=== PATIENT | male | born 1960 | race Caucasian/White ===

== ENCOUNTER 2019-11-27 17:15 | Inpatient (IN) | payer BC ==
[~2019-11-27] VITALS: Ht 172.7 cm; Wt 86.2 kg
[2019-11-27] MEDS ORDERED: ONDANSETRON HCL 4 MG/2 ML VIAL IV ONE (20:00)
[2019-11-27] MEDS ORDERED: HYDROmorphone HCL 2 MG/ML VL IV ONE (20:00)
[2019-11-27 20:30] LABS: Basophils # (auto) 0 10 ^3/uL (0-0.2); Basophils % (auto) 0.3 % (0.0-2.0); Eosinophils # (auto) 0.2 10 ^3/uL (0-0.8); Eosinophils % (auto) 1.6 % (0.0-7.0); Hematocrit 39.5 % (41.0-53.0); Hemoglobin 13.2 g/dL (13.5-17.5); Lymphocytes # (auto) 1.4 10 ^3/uL (0.4-5.4); Mean Corpuscular Hemoglobin 30.8 pg (28.0-32.0); Mean Corpuscular Hgb Conc. 33.4 g/dL (32.0-36.0); Mean Corpuscular Volume 92.1 fL (80.0-100.0); Monocytes % (auto) 8.6 % (0.0-12.0); Neutrophils # (auto) 8.5 10 ^3/uL (1.6-8.6); Neutrophils % (auto) 76.5 % (37.0-80.0); Platelet Count (auto) 183 10^3/uL (140-450); Red Blood Cells 4.29 10^6/uL (4.5-5.90); Red Cell Distribution Width 12.5 % (11.8-14.3); White Blood Cell 11.1 10^3/uL (4.4-10.8)
[2019-11-27 20:48] LABS: Albumin 3.6 g/dL (3.4-5.0); BUN/Creatinine Ratio 17.3; Calcium 8.4 mg/dL (8.5-10.1); Potassium 4.3 mmol/L (3.5-5.1)
[2019-11-27 20:49] LABS: INR 1.05 (0.9-1.15)
[2019-11-27 20:50] LABS: Bilirubin, Total 0.6 mg/dL (0.2-1.0); Total Protein 6.8 g/dL (6.4-8.2)
[2019-11-27] MEDS ORDERED: ONDANSETRON HCL 4 MG/2 ML VIAL IV PRN (21:00)
[2019-11-27] MEDS: FAMOTIDINE 20 MG TAB PO SCH (22:02)
[2019-11-28] MEDS: MORPHINE SULFATE 4 MG/ML SYR/VIAL IV PRN ×3 (01:59→22:02)
[2019-11-28 03:08] LABS: Urine WBC None Seen /hpf (0 - 3)
[2019-11-28 03:14] LABS: Urine Bacteria NONE SEEN /hpf (None Seen); Urine Blood Negative /uL (Negative); Urine Specific Gravity 1.008 (1.001-1.035)
[2019-11-28 03:21] LABS: Alcohol, Urine < 3.0 mg/dL (0-10); Amphetamine Screen, Urine NEGATIVE (NEGATIVE); Barbiturate Scree,Urine NEGATIVE (NEGATIVE); Benzodiazephine Screen, Urine NEGATIVE (NEGATIVE); Cocaine Screen, Urine NEGATIVE (NEGATIVE); Opiate Scree,Urine POSITIVE (NEGATIVE); Phencyclidine Screen, Urine NEGATIVE (NEGATIVE)
[2019-11-28 03:32] LABS: Cannabinoid Screen, Urine NEGATIVE (NEGATIVE)
[2019-11-28 07:49] LABS: Basophils # (auto) 0.1 10 ^3/uL (0-0.2); Basophils % (auto) 0.9 % (0.0-2.0); Eosinophils # (auto) 0.4 10 ^3/uL (0-0.8); Eosinophils % (auto) 4.8 % (0.0-7.0); Hematocrit 41.9 % (41.0-53.0); Hemoglobin 13.8 g/dL (13.5-17.5); Lymphocytes # (auto) 1.1 10 ^3/uL (0.4-5.4); Lymphocytes % (auto) 11.6 % (10.0-50.0); Mean Corpuscular Hemoglobin 30.4 pg (28.0-32.0); Mean Corpuscular Hgb Conc. 32.8 g/dL (32.0-36.0); Mean Corpuscular Volume 92.5 fL (80.0-100.0); Monocytes # (auto) 0.6 10 ^3/uL (0-1.3); Monocytes % (auto) 6.8 % (0.0-12.0); Neutrophils % (auto) 75.9 % (37.0-80.0); Platelet Count (auto) 190 10^3/uL (140-450); Red Blood Cells 4.54 10^6/uL (4.5-5.90); Red Cell Distribution Width 12.5 % (11.8-14.3); White Blood Cell 9.2 10^3/uL (4.4-10.8)
[2019-11-28 08:09] LABS: BUN/Creatinine Ratio 13.5; Calcium 8.3 mg/dL (8.5-10.1); Potassium 3.9 mmol/L (3.5-5.1)
[2019-11-28] MEDS: FAMOTIDINE 20 MG TAB PO SCH ×2 (09:06→21:57)
[2019-11-28] MEDS: HYDROcodone-ACET 5/325MG TAB PO PRN ×3 (09:07→18:18)
--- NOTE | 2019-11-28 10:38 | NUR ---
Telemetry admit from ER ZAINA BETANCOURT admitted to Telemetry unit after SBAR received. Patient oriented to RICHY ROBLEDO RN primary RN, unit, room 209, bed, and unit policies regarding patient care and visiting hours. Patient weighed by bedscale and encouraged to call if they need something. All questions and concerns addressed, patient verbalized understanding. Bed in low and locked position, rails up x2, no-slip socks on.
[2019-11-28] MEDS ORDERED: MORP-109 PO (11:19)
[2019-11-28] MEDS ORDERED: CYCL7.5T45 PO (11:19)
[2019-11-28] MEDS ORDERED: PROP60CA34 PO (11:19)
[2019-11-28] MEDS ORDERED: HYDR-4611 PO (11:19)
[2019-11-28] MEDS ORDERED: ALEN70TA2 PO (11:19)
[2019-11-28 12:38] VITALS: BP 149/96
--- NOTE | 2019-11-28 16:15 | NUR ---
DR FRYE AT BEDSIDE
[2019-11-28] MEDS ORDERED: cloNIDine HCL 0.1 MG TAB PO PRN (16:30)
[2019-11-28 16:32] VITALS: BP 138/88
--- NOTE | 2019-11-28 19:15 | NUR ---
Opening Shift Note Received report from Germania SANTOS. Assumed care of patient, awake and alert. No S/S of distress/SOB or pain. Instructed on POC and to call for assist PRN. Fall precaution measures in place, will continue to monitor for changes Q1hr and PRN.
[2019-11-28 22:00] VITALS: BP 133/85
[2019-11-29 05:00] VITALS: BP 146/92
[2019-11-29] MEDS: HYDROcodone-ACET 5/325MG TAB PO PRN ×3 (05:19→21:48)
--- NOTE | 2019-11-29 05:19 | NUR ---
Patient prepped with CHG wipes, clean set of sheets placed.
[2019-11-29 05:21] LABS: Basophils # (auto) 0 10 ^3/uL (0-0.2); Basophils % (auto) 0.4 % (0.0-2.0); Eosinophils # (auto) 0.4 10 ^3/uL (0-0.8); Eosinophils % (auto) 3.6 % (0.0-7.0); Hematocrit 42.3 % (41.0-53.0); Hemoglobin 14.3 g/dL (13.5-17.5); Lymphocytes # (auto) 1.4 10 ^3/uL (0.4-5.4); Lymphocytes % (auto) 12.7 % (10.0-50.0); Mean Corpuscular Hemoglobin 31.2 pg (28.0-32.0); Mean Corpuscular Hgb Conc. 33.7 g/dL (32.0-36.0); Mean Corpuscular Volume 92.6 fL (80.0-100.0); Monocytes # (auto) 0.8 10 ^3/uL (0-1.3); Monocytes % (auto) 7.7 % (0.0-12.0); Neutrophils # (auto) 8.2 10 ^3/uL (1.6-8.6); Neutrophils % (auto) 75.6 % (37.0-80.0); Nucleated Red Blood Cells % 0.1 %; Platelet Count (auto) 193 10^3/uL (140-450); Red Blood Cells 4.57 10^6/uL (4.5-5.90); Red Cell Distribution Width 12.5 % (11.8-14.3); White Blood Cell 10.9 10^3/uL (4.4-10.8)
[2019-11-29 06:10] LABS: Calcium 8.8 mg/dL (8.5-10.1)
[2019-11-29 06:11] LABS: BUN/Creatinine Ratio 15.6
[2019-11-29] MEDS ORDERED: KETOROLAC TROMETH 30 MG/ML 1ML VIAL ONE (06:58)
[2019-11-29] MEDS ORDERED: VANCOMYCIN HCL 1000 MG VL ONE (06:59)
[2019-11-29] MEDS ORDERED: BUPIVACAINE W/ EPINEPH 0.25% INJ 50ML MDV ONE (07:00)
[2019-11-29] MEDS ORDERED: TRANEXAMIC ACID 20 ML ONE (07:00)
--- NOTE | 2019-11-29 07:15 | NUR ---
Opening Shift Note Assumed care of patient, awake and alert. No S/S of distress/SOB or pain. Instructed on POC and to call for assist PRN, will continue to monitor for changes Q1hr and PRN. Bed locked in lowest position with two side rails up and call light in reach.
[2019-11-29 08:00] VITALS: BP 160/99
[2019-11-29] MEDS ORDERED: ceFAZolin 1GM/50ML 100 ML IV ONE (08:40)
[2019-11-29] MEDS ORDERED: SUCCINYLCHOLINE CHLORIDE 20 MG/ML 10ML VIAL IV ONE (09:07)
[2019-11-29] MEDS ORDERED: fentaNYL CITRATE 100 MCG/2 ML VL ONE ×2 (09:09→09:24)
[2019-11-29] MEDS ORDERED: ROCURONIUM 10MG/ML 10ML VIAL IV ONE (09:09)
[2019-11-29] MEDS ORDERED: MIDAZOLAM HCL 1MG/1ML-2 ML VIAL ONE ×2 (09:09→09:23)
[2019-11-29 09:14] VITALS: BP 160/99
[2019-11-29] MEDS ORDERED: DexAMETHasone SOD PHOS 10MG/1ML VIAL INJ ONE (09:49)
[2019-11-29] MEDS: FAMOTIDINE 20 MG TAB PO SCH ×2 (10:00→21:47)
[2019-11-29] MEDS ORDERED: MORPHINE SULF(PF) 0.5MG/ML 10ML VIAL ONE (10:19)
[2019-11-29] MEDS ORDERED: ALBUMIN 5% 500 ML IV ONE (10:28)
[2019-11-29] MEDS ORDERED: NEOSTIGMINE 1 MG/ML INJ (10mg/10ML VIAL) ONE (11:03)
[2019-11-29] MEDS ORDERED: GLYCOPYRROLATE 0.2 MG/ML 1ML VIAL ONE (11:03)
[2019-11-29] MEDS ORDERED: KETOROLAC TROMETH 60MG/2ML VIAL ONE (11:19)
[2019-11-29] MEDS: LACTATED RINGER'S 1,000 ML IV SCH ×2 (11:24→21:24)
[2019-11-29] MEDS: ceFAZolin 1GM/50ML 50 ML IV SCH ×3 (11:30→23:33)
[2019-11-29] MEDS ORDERED: HYDROmorphone HCL 2 MG/ML VL IV PRN ×2 (11:45)
[2019-11-29] MEDS ORDERED: METOCLOPRAMIDE HCL 5MG/ml INJ 2ml VIAL IV PRN (11:45)
--- NOTE | 2019-11-29 12:40 | NUR ---
RECEIVED PATIENT TO THE FLOOR, WES PACU NURSE AT BEDSIDE. PER WES RN PATIENT HAD HIS IV INFILTRATE DURING SURGERY AND NEW ONE WAS PLACED TO THE RIGHT WRIST PER WES.. PER WES RN, PATIENT RECEIVED A SKIN TEAR WHEN TEGADERM WAS REMOVED. I ASKED WES RN IF PHOTOS WERE TAKEN OF SKIN TEAR, PER WES THEY DO NOT DO THAT DOWN THERE . I ALSO ASKED IF THERE IS A NOTE AND WES STATES SHE HAS TO CATCH UP WITH CHARTING. UPON REVIEWING CHART THERE ARE NO NOTES REGARDING SKIN TEAR. CHARGE NURSE VERONICA YOUNG. I ASSESSED PATIENTS ARM AND THERE IS A SUPERFICIAL SKIN TEAR THAT IS CURRENTLY BLEEDING, ONLY COBAN PLACED TO THE SITE FROM PACU. I WILL DRESS WITH AN OPTIFOAM. PATIENT UNDER NO DISTRESS AT THIS TIME. WILL CONTINUE TO MONITOR.
[2019-11-29 13:11] VITALS: BP 160/97
[2019-11-29] MEDS: MORPHINE SULFATE 4 MG/ML SYR/VIAL IV PRN (13:24)
[2019-11-29] MEDS: SODIUM CHLOR 0.9% PF (SALINE LOCK) 10ML VIAL/SYR IV SCH ×2 (14:00→21:50)
--- NOTE | 2019-11-29 14:34 | NUR ---
DR DALTON GOULD
[2019-11-29 16:50] VITALS: BP 130/77
--- NOTE | 2019-11-29 19:20 | NUR ---
Opening Shift Note Received report from Maria R SANTOS. Assumed care of patient, awake and alert. Patient eating dinner at the moment. No S/S of distress/SOB or pain. Instructed on POC and to call for assist PRN. Fall precaution measures in place, will continue to monitor for changes Q1hr and PRN.
[2019-11-29] MEDS: ACETAMINOPHEN 325 MG TAB PO PRN (20:24)
[2019-11-29 22:00] VITALS: BP 129/73
[2019-11-30] MEDS: MORPHINE SULFATE 4 MG/ML SYR/VIAL IV PRN ×4 (01:14→17:51)
[2019-11-30] MEDS: HYDROcodone-ACET 5/325MG TAB PO PRN ×3 (03:09→20:03)
[2019-11-30 05:00] VITALS: BP 153/90
[2019-11-30] MEDS: ACETAMINOPHEN 325 MG TAB PO PRN (05:14)
[2019-11-30] MEDS: SODIUM CHLOR 0.9% PF (SALINE LOCK) 10ML VIAL/SYR IV SCH ×3 (06:20→20:59)
[2019-11-30] MEDS: LACTATED RINGER'S 1,000 ML IV SCH ×2 (07:24→17:24)
--- NOTE | 2019-11-30 07:30 | NUR ---
Opening Shift Note Assumed care of patient, awake and alert. No S/S of distress/SOB or pain. Bed is low, locked with 2x side rails up. Call light is within reach. Instructed on POC and to call for assist PRN, will continue to monitor for changes Q1hr and PRN.
[2019-11-30 08:59] LABS: Basophils # (auto) 0.1 10 ^3/uL (0-0.2); Basophils % (auto) 0.5 % (0.0-2.0); Eosinophils # (auto) 0 10 ^3/uL (0-0.8); Hematocrit 36.5 % (41.0-53.0); Hemoglobin 12.1 g/dL (13.5-17.5); Lymphocytes # (auto) 1.1 10 ^3/uL (0.4-5.4); Lymphocytes % (auto) 5.9 % (10.0-50.0); Mean Corpuscular Hemoglobin 30.4 pg (28.0-32.0); Mean Corpuscular Hgb Conc. 33.1 g/dL (32.0-36.0); Mean Corpuscular Volume 91.9 fL (80.0-100.0); Monocytes # (auto) 1.2 10 ^3/uL (0-1.3); Monocytes % (auto) 6.1 % (0.0-12.0); Neutrophils # (auto) 16.8 10 ^3/uL (1.6-8.6); Neutrophils % (auto) 87.5 % (37.0-80.0); Platelet Count (auto) 199 10^3/uL (140-450); Red Blood Cells 3.98 10^6/uL (4.5-5.90); Red Cell Distribution Width 12.8 % (11.8-14.3); White Blood Cell 19.2 10^3/uL (4.4-10.8)
[2019-11-30 09:00] VITALS: BP 145/95
[2019-11-30] MEDS: FAMOTIDINE 20 MG TAB PO SCH ×2 (09:06→21:00)
[2019-11-30] MEDS: ENOXAPARIN SOD 40 MG/0.4 ML SYRINGE SC SCH (09:07)
[2019-11-30 09:10] LABS: Albumin 3.3 g/dL (3.4-5.0); Calcium 8.5 mg/dL (8.5-10.1); Potassium 4.4 mmol/L (3.5-5.1)
[2019-11-30] MEDS ORDERED: METOCLOPRAMIDE HCL 5MG/ml INJ 2ml VIAL IV ONE (09:10)
[2019-11-30 09:15] LABS: Bilirubin, Total 0.5 mg/dL (0.2-1.0); Total Protein 6.5 g/dL (6.4-8.2)
--- NOTE | 2019-11-30 09:20 | NUR ---
Dr. Fine rounding Dr. Fine at bedside discussing POC with patient. All concerns addressed at this time. No new orders received. Will continue to monitor Q1hr and PRN.
[2019-11-30] MEDS ORDERED: ONDANSETRON HCL 4 MG/2 ML VIAL IV ONE (09:34)
[2019-11-30 13:00] VITALS: BP 155/92
[2019-11-30] MEDS: PROPRANOLOL HCL 20 MG TAB PO SCH ×2 (13:24→21:00)
--- NOTE | 2019-11-30 16:27 | NUR ---
assessment Patient is a 59 year old male who is alert and oriented. Patients cognitive abilities are intact. Prior to admission patient lived home alone and functioned independently. Patient informed me he is able to care for his own ADLs. Per patient he will return home to his prior living arrangements post discharge and family will transport him home. Patient informed me he fell over a box and fractured his hip. Patients son will be here on 12/03/2019 to stay with patient for recovery. Patient ambulated with PT today. Patient will need a fww on discharge. Patient is willing to go to out patient physical therapy. Patients PCP is Dr Vaughan. I informed patient he has a right to speak to a manager social regarding all care. I informed patient he has a right to participate in any and all discharge planning. Patient does not have a POA and advanced directive. I have offered patient information on POA and advanced directives. I informed the patient the advantages and benefits of having an Advanced Directive. Patient verbalized understanding and agreed to discharge plan home. Addendum: 11/30/19 at 1630 by Chula RESEDNIZ Amended: Links added.
[2019-11-30 17:00] VITALS: BP 147/74
--- NOTE | 2019-11-30 19:25 | NUR ---
Opening Shift Note Received report from Vanessa SANTOS. Assumed care of patient, awake and alert. No S/S of distress/SOB or pain. Instructed on POC and to call for assist PRN, will continue to monitor for changes Q1hr and PRN.
[2019-11-30 21:49] VITALS: BP 156/95
[2019-12-01] MEDS: HYDROcodone-ACET 5/325MG TAB PO PRN ×4 (00:18→20:18)
[2019-12-01] MEDS: TEMAZEPAM 15 MG CAP PO PRN ×2 (00:50→23:18)
[2019-12-01] MEDS: LACTATED RINGER'S 1,000 ML IV SCH (03:24)
[2019-12-01 05:20] VITALS: BP 143/75
[2019-12-01 05:48] LABS: Basophils # (auto) 0 10 ^3/uL (0-0.2); Basophils % (auto) 0.4 % (0.0-2.0); Eosinophils # (auto) 0.1 10 ^3/uL (0-0.8); Hematocrit 34.4 % (41.0-53.0); Hemoglobin 11.4 g/dL (13.5-17.5); Lymphocytes # (auto) 2.3 10 ^3/uL (0.4-5.4); Lymphocytes % (auto) 17.3 % (10.0-50.0); Mean Corpuscular Hemoglobin 30.6 pg (28.0-32.0); Mean Corpuscular Hgb Conc. 33.1 g/dL (32.0-36.0); Mean Corpuscular Volume 92.5 fL (80.0-100.0); Monocytes # (auto) 1.3 10 ^3/uL (0-1.3); Monocytes % (auto) 10.2 % (0.0-12.0); Neutrophils # (auto) 9.4 10 ^3/uL (1.6-8.6); Neutrophils % (auto) 71.1 % (37.0-80.0); Platelet Count (auto) 204 10^3/uL (140-450); Red Blood Cells 3.72 10^6/uL (4.5-5.90); Red Cell Distribution Width 12.6 % (11.8-14.3); White Blood Cell 13.2 10^3/uL (4.4-10.8)
[2019-12-01] MEDS: PROPRANOLOL HCL 20 MG TAB PO SCH ×3 (06:00→22:00)
[2019-12-01] MEDS: SODIUM CHLOR 0.9% PF (SALINE LOCK) 10ML VIAL/SYR IV SCH ×3 (06:00→22:00)
[2019-12-01 06:22] LABS: Calcium 8.1 mg/dL (8.5-10.1); Potassium 3.9 mmol/L (3.5-5.1)
[2019-12-01 06:24] LABS: BUN/Creatinine Ratio 18.6
--- NOTE | 2019-12-01 07:25 | NUR ---
Opening Shift Note Assumed care of patient, awake and alert. No S/S of distress/SOB or pain. L hip dressing is C/D/I. Bed is low, locked with 2x side rails up. Call light is within reach. Instructed on POC and to call for assist PRN, will continue to monitor for changes Q1hr and PRN.
[2019-12-01] MEDS: MORPHINE SULFATE 4 MG/ML SYR/VIAL IV PRN ×3 (08:11→23:18)
[2019-12-01 08:50] VITALS: BP 136/74
[2019-12-01] MEDS: FAMOTIDINE 20 MG TAB PO SCH ×2 (09:31→22:00)
[2019-12-01] MEDS: ENOXAPARIN SOD 40 MG/0.4 ML SYRINGE SC SCH (09:31)
--- NOTE | 2019-12-01 10:34 | NUR ---
PT at bedside
--- NOTE | 2019-12-01 10:40 | NUR ---
Dr. Lazo rounding Dr. Lazo is at bedside discussing POC with patient.
[2019-12-01] MEDS ORDERED: cloNIDine HCL 0.1 MG TAB PO PRN (10:45)
[2019-12-01] MEDS ORDERED: POLYETHYLENE GLYCOL 17 GM PWDR PO ONE (10:45)
--- NOTE | 2019-12-01 11:21 | NUR ---
Nutrition Assessment Notes please see attached link fro complete assessment Est energy needs BW 75 [id number] kcal (25-30kcal/kg BW), Est protein needs: 75-90g (1-1.2g/kg BW) Will reassess prn Addendum: 12/01/19 at [address] Amended: Links added.
[2019-12-01 12:58] VITALS: BP 127/69
--- NOTE | 2019-12-01 16:19 | NUR ---
D/C Planning Regarding social service consult for outpatient physical therapy and walker. Faxed clinical information to [facility]. Per Radha with [facility] they will deliver walker to front lobby between 14:00-17:00. Informed patient he can go to [facility] physical therapy in [address] . Informed DANIELLE Mendez.
[2019-12-01 16:46] VITALS: BP 138/70
[2019-12-01 22:52] VITALS: BP 121/80
[2019-12-01 23:21] VITALS: BP 121/80
--- NOTE | 2019-12-02 03:10 | NUR ---
1900.12/01/19. REPORT OBTAINED AND PATIENT CARE RESUMED. 1999 PATIENT SEEN AND ASSESSED. WAS COMFORTABLE. BREATHING WAS EVEN AND UNLABORED.. OFFERED A CUP OF TEA. 219. MEDICATED FOR PAIN 08/22 RYAN BOLANOS.
--- NOTE | 2019-12-02 03:14 | NUR ---
2318. MEDICATED FOR PAIN WITH MORPHINE.
[2019-12-02] MEDS: HYDROcodone-ACET 5/325MG TAB PO PRN ×3 (04:10→21:44)
--- NOTE | 2019-12-02 05:25 | NUR ---
PATIENT AWAKE. DENEIS PAIN.
[2019-12-02 05:27] VITALS: BP 143/84
[2019-12-02] MEDS: SODIUM CHLOR 0.9% PF (SALINE LOCK) 10ML VIAL/SYR IV SCH ×3 (05:31→21:41)
[2019-12-02] MEDS: PROPRANOLOL HCL 20 MG TAB PO SCH ×3 (05:32→21:43)
[2019-12-02 06:43] LABS: Basophils # (auto) 0.1 10 ^3/uL (0-0.2); Basophils % (auto) 0.8 % (0.0-2.0); Eosinophils # (auto) 0.3 10 ^3/uL (0-0.8); Hematocrit 35.7 % (41.0-53.0); Hemoglobin 12.2 g/dL (13.5-17.5); Lymphocytes # (auto) 2.7 10 ^3/uL (0.4-5.4); Lymphocytes % (auto) 19.1 % (10.0-50.0); Mean Corpuscular Hemoglobin 31.2 pg (28.0-32.0); Mean Corpuscular Hgb Conc. 34.3 g/dL (32.0-36.0); Mean Corpuscular Volume 91.2 fL (80.0-100.0); Monocytes # (auto) 1.6 10 ^3/uL (0-1.3); Monocytes % (auto) 11.4 % (0.0-12.0); Neutrophils # (auto) 9.4 10 ^3/uL (1.6-8.6); Neutrophils % (auto) 66.7 % (37.0-80.0); Platelet Count (auto) 262 10^3/uL (140-450); Red Blood Cells 3.92 10^6/uL (4.5-5.90); Red Cell Distribution Width 12.8 % (11.8-14.3)
--- NOTE | 2019-12-02 08:00 | NUR ---
Opening Shift Note Assumed care of patient, awake, alert and oriented X4. No S/S of distress/SOB, complains of left hip pain, 8/, will medicated with prescribed pain medication, verbalized understanding. IV to left hand, 22 gauge, patent and saline locked. Left hip dressing clean, dry and intact. Instructed on POC and to call for assist PRN, verbalized understanding. Bed locked, in lowest position, call light within reach, will continue to monitor for changes Q1hr and PRN.
[2019-12-02 08:50] VITALS: BP 102/69
--- NOTE | 2019-12-02 10:05 | NUR ---
ROUNDS Dr Lazo at bedside for rounds, new orders received and followed through. Patient updated on plan of care, verbalized understanding.
[2019-12-02] MEDS: ENOXAPARIN SOD 40 MG/0.4 ML SYRINGE SC SCH (10:16)
[2019-12-02] MEDS: FAMOTIDINE 20 MG TAB PO SCH ×2 (10:16→21:41)
[2019-12-02] MEDS: MORPHINE SULFATE 4 MG/ML SYR/VIAL IV PRN (12:53)
[2019-12-02 13:00] VITALS: BP 122/76
--- NOTE | 2019-12-02 16:56 | NUR ---
D/C planning Regarding social service consult for shower chair and home health. Faxed clinical information to [facility]. Ward Garcia with [facility] shower chair will be deliver to bedside between 12:00-13:00. Contact [facility], [facility], [facility] health and they are not contracted with patient health plan. Patient was informed regarding his health plan being out of area. Patient was provided with outpatient physical therapy. Addendum: 12/02/19 at 1700 by KENY RESENDIZ Patient was provided with outpatient physical therapy information.
[2019-12-02 17:00] VITALS: BP 121/75
--- NOTE | 2019-12-02 19:03 | NUR ---
Care endorsed to DANIELLE Vazquez, night nurse.
--- NOTE | 2019-12-02 19:33 | NUR ---
1900. REPORT OBTAINED ON PATIENT. 1914. PATIENT SEEN IN HIS ROOM AND ASSESSMENT DONE. ALERT AND AFEBRILE. DENIES PAIN. DRESSING ON SURGICAL SITE CLEAR AND DRY. LUNGS CLEAR. BREATHING EVEN AND UNLABORED.
[2019-12-02 21:59] VITALS: BP 112/70
[2019-12-02] MEDS: TEMAZEPAM 15 MG CAP PO PRN (22:45)
[2019-12-03 05:14] VITALS: BP 123/62
[2019-12-03] MEDS: SODIUM CHLOR 0.9% PF (SALINE LOCK) 10ML VIAL/SYR IV SCH ×2 (05:52→13:57)
[2019-12-03] MEDS: HYDROcodone-ACET 5/325MG TAB PO PRN ×3 (05:53→16:27)
[2019-12-03] MEDS: PROPRANOLOL HCL 20 MG TAB PO SCH ×2 (05:53→14:00)
--- NOTE | 2019-12-03 07:23 | NUR ---
0700. PATIENT ENDORSED TO JULIE. SANTOS.
--- NOTE | 2019-12-03 08:00 | NUR ---
Opening Shift Note Assumed care of patient, awake, alert and oriented X4. No S/S of distress/SOB, complains of left hip pain, 2/10, will medicated with prescribed pain medication, verbalized understanding. IV to left hand, 22 gauge, patent and saline locked. Left hip dressing clean, dry and intact. Instructed on POC and to call for assist PRN, verbalized understanding. Bed locked, in lowest position, call light within reach, will continue to monitor for changes Q1hr and PRN.
[2019-12-03 09:00] VITALS: BP 112/71
--- NOTE | 2019-12-03 09:45 | NUR ---
ROUNDS Dr Lazo at bedside for rounds, new orders received and followed through. Patient updated on plan of care, verbalized understanding.
--- NOTE | 2019-12-03 10:55 | NUR ---
I called [facility] [phone] to ask if they are at risk for home health-was on hold for more than 10 minutes-will try again.
[2019-12-03] MEDS: ENOXAPARIN SOD 40 MG/0.4 ML SYRINGE SC SCH (11:07)
[2019-12-03] MEDS: FAMOTIDINE 20 MG TAB PO SCH (11:07)
[2019-12-03 11:21] VITALS: BP 123/62
--- NOTE | 2019-12-03 11:26 | NUR ---
I called [facility] [phone] and spoke with Nicky regarding the plan of care for this patient. Per Nicky, the medical group [facility] is at risk for the home health. I faxed home health order to [facility] along with PT notes-asking for authorization for [facility]. I called Erica at [facility]-she referred me to call Yue at [phone].
--- NOTE | 2019-12-03 11:31 | NUR ---
I called [facility] [phone] extension [phone] and left message regarding home health order, requesting authorization for [facility].
--- NOTE | 2019-12-03 11:36 | NUR ---
D/C planning Received a call from Paloma with [facility] advising me they are not contracted with patient health plan but they are with the medical group and they can accept patient. Per Paloma patient will be seen within 24-48hrs upon d/c day. MARCO ANTONIO Vick will obtain authorization from [facility]. DANIELLE Fierro was informed.
[2019-12-03 13:00] VITALS: BP 104/73
--- NOTE | 2019-12-03 13:35 | NUR ---
I called [facility] a second time [phone] extension [phone] and left message for Yue letting her know that patient is discharged home today and that we need authorization for [facility].
--- NOTE | 2019-12-03 14:40 | NUR ---
I received a message from [facility] Upkeep Mechanic Yue [phone] ext [phone]-when I called her back there was no answer-I left another message asking for authorization to be given to [facility]-in the message I provided the contact information for [facility].
--- NOTE | 2019-12-03 14:50 | NUR ---
I spoke with [facility] Teaching Fellow Yue, she told me that they are NOT at risk for the home health, that it needs to go through [employer] [facility]. Yue provided me with two agencies contracted with [facility] [phone] and [facility] [phone]-I called and both of these agencies are based in [place]. I called Yue back and left her a message. I also called Nicky with [facility] [phone] and gave her an update-she said that [facility] IS at risk for the home health and she is going to give Yue a call.
--- NOTE | 2019-12-03 15:43 | NUR ---
I received a message from Yue at [facility]-she let me know that she is reaching out to [facility] [phone]-she will give me a call back to let me know if they can accept the patient. I also received a phone call from Nicky at [facility] letting me know that because patient is shared risk between them and [facility], the home health company has to be one that is contracted with [facility].
[2019-12-03 17:00] VITALS: BP 122/74
--- NOTE | 2019-12-03 18:39 | NUR ---
Discharge instructions given as ordered. Encourage to follow up with PMD as instructed. All questions and concerns addressed. Patient verbalized understanding. Medication reconciliation form completed and copy given to patient. IV removed with catheter intact, pressure dressing applied. Dressing changed to left hip, patricia intact. Patient taken to vehicle via wheelchair with all personal belongings, accompanied by staff and family member. No distress noted at time of departure.
--- NOTE | 2019-12-04 09:46 | NUR ---
I received a call from Nicky at [facility] letting me know that she spoke with Darren at [facility] and they may be willing to do an BARB for this patient (I let Nicky know patient discharged home yesterday). I faxed home health request/clinical information to [facility] as well as to [facility]. Nicky will check back with [facility] in a few hours and give me a call back.
== END 2019-12-03 18:57 | disposition home or self-care (01) | DRG 470 ==
LOC: ER 17:15 → OVERFLOW 17:16 → CENTRAL 11-28 10:38
PROVIDERS: ADMIT Nurse Practitioner; ATTEND Internal Medicine
PROC: 0SRB0JZ Replacement of Left Hip Joint with Synthetic Substitute, Open Approach (ICD-10-PCS; principal; 2019-11-29 09:10)
DX: S72.012A Unspecified intracapsular fracture of left femur, initial encounter for closed fracture (principal); E87.1 Hypo-osmolality and hyponatremia; I10 Essential (primary) hypertension; G89.29 Other chronic pain; Z20.828 Contact with and (suspected) exposure to other viral communicable diseases; Z79.01 Long term (current) use of anticoagulants; Z82.49 Family history of ischemic heart disease and other diseases of the circulatory system; G43.909 Migraine, unspecified, not intractable, without status migrainosus; Z83.3 Family history of diabetes mellitus; Z96.642 Presence of left artificial hip joint; Y93.89 Activity, other specified; W01.0XXA Fall on same level from slipping, tripping and stumbling without subsequent striking against object, initial encounter; Y92.89 Other specified places as the place of occurrence of the external cause; Y99.8 Other external cause status
CPT/HCPCS: 36415; 71045; 72170; 73501; 73502; 73700; 80048; 80053; 80307; 81001; 85025; 85610; 86850; 86900; 86901; 93005; 93306; 96374; 96375; 97110; 97116; 97530; C1713; C1776; G0378; J0330; J0690; J1100; J1885; J2250; J2405

== ENCOUNTER → 2023-08-20 | Outpatient (CLI) | payer BC ==
[~2023-08-20] VITALS: Ht 172.7 cm; Wt 72.6 kg
[~2023-08-20] MED LIST: ALEN70TA21 PO; CYCL-838 PO; HYDR-4611 PO; MORP-109 PO; PROP60CA34 PO
[2023-08-20] MEDS: ADENOSINE 61 MG in GIVE UN-DILUTED 0 ML IV STA (10:25)
== END | disposition home or self-care (01) ==
LOC: XYW 08:32
PROVIDERS: ATTEND Specialist
DX: R06.09 Other forms of dyspnea (principal); R42 Dizziness and giddiness; R00.2 Palpitations
CPT/HCPCS: 78452; 93017; A9500; J0153

== ENCOUNTER 2024-06-30 18:17 | Emergency (ER) | payer BC, OTHER ==
[~2024-06-30] VITALS: Ht 172.7 cm; Wt 68.2 kg
[2024-06-30 18:52] VITALS: BP 135/78; PULSE 95; RESP 16; TEMP 98; O2SAT 96
[2024-06-30] MEDS ORDERED: CEPH500C PO (19:24)
[2024-06-30] MEDS ORDERED: ACET500T58 PO (19:24)
--- NOTE | 2024-06-30 19:24 | ED.PDOC ---
HPI Comments 64-year-old male presents to ER with complaints of head injury x1 day. Patient reports that he tripped while walking in his house and hit his forehead against hardwood l[address] at 7 p.m. last night and sustained lacerations to forehead at that time. Denies LOC and denies any current pain. Patient presents to ER ambulatory on arrival, alert and oriented x 4, with steady gait, in no distress. Denies headache, neck pain, numbness/tingling, n/v, dizziness, vision changes, use of blood thinners or any further symptoms/complaints Chief Complaint: Laceration Time Seen by MD: 18:59 Primary Care Provider: UNKNOWN Reviewed Notes: Nurses Notes, Medications, Allergies Allergies: Coded Allergies: Meperidine (Verified Allergy, Unknown, 08/20/23) Home Meds Active Scripts Acetaminophen (Acetaminophen) 500 Mg Tab, 500 MG PO Q4HPRN, #30 TAB 0 Refills Prov:NICOLASA MILLER 06/30/24 Cephalexin Monohydrate (Cephalexin) 500 Mg Cap, 1 CAP PO BID for 7 Days, #14 CAP 0 Refills Prov:NICOLASA MILLER 06/30/24 Reported Medications Propranolol Hcl (Inderal La) 60 Mg Cap, 120 MG PO DAILY, CAP 15/20 Alendronate Sodium (Fosamax) 70 Mg Tab, 1 TAB PO QWEEKLY, #4 TAB 11 Refills 11/28/19 Cyclobenzaprine Hcl (CYCLOBENZAPRINE HCL) 7.5 Mg Tab, 7.5 MG PO [id number] PRN for FOR MUSCLE SPASM, TAB 20 Hydrocodone-Acetaminophen (Hydrocodone Bitartrate/AC 10-300 mg) 1 Tab Tab, 1 TAB PO TIDP PRN for FOR MUSCLE SPASM, TAB 20 Morphine Sulfate (Ms Contin) 15 Mg Tab, 1 TAB PO BID, #60 TAB 20 Information Source: Patient Mode of Arrival: Ambulatory Complexity: Simple Laceration Length (cm): 4 Skin Type: Linear (SKIN TEARS) Past Medical History PAST MEDICAL HISTORY: HTN Family History Family History: Unknown Social History Smoker: Non-Smoker Alcohol: Denies ETOH Use Drugs: Denies Drug Use Lives In: Home Constitutional: denies: chills, diaphoresis, fatigue, fever, malaise, sweats, weakness, others EENTM: denies: blurred vision, double vision, ear bleeding, ear discharge, ear drainage, ear pain, ear ringing, eye pain, eye redness, hearing loss, mouth pain, mouth swelling, nasal discharge, nose bleeding, nose congestion, nose pain, photophobia, tearing, throat pain, throat swelling, voice changes, others Respiratory: denies: cough, hemoptysis, orthopnea, SOB at rest, shortness of breath, SOB with excertion, stridor, wheezing, others Cardiovascular: denies: chest pain, dizzy spells, diaphoresis, Dyspnea on exertion, edema, irregular heart beat, left arm pain, lightheadedness, palpitations, PND, syncope, others Gastrointestinal: denies: abdomen distended, abdominal pain, blood streaked bowels, constipated, diarrhea, dysphagia, difficulty swallowing, hematemesis, melena, nausea, poor appetite, poor fluid intake, rectal bleeding, rectal pain, vomiting, others Genitourinary: denies: burning, dysuria, flank pain, frequency, hematuria, incontinence, penile discharge, penile sore, pain, testicle pain, testicle swelling, urgency, others Neurological: reports: others ( STATED IN HPI) Musculoskeletal: denies: back pain, gout, joint pain, joint swelling, muscle pain, muscle stiffness, neck pain, others Integumetry: reports: others ( STATED IN HPI) Allergic/Immunocompromised: denies: Difficulty Healing, Frequent Infections, Hives, Itching, others Hematologic/Lymphatic: denies: anemia, blood clots, easy bleeding, easy bruising, swollen glands, others Endocrine: denies: excessive hunger, excessive sweating, excessive thirst, excessive urination, flushing, intolerance to cold, intolerance to heat, unexplained weight gain, unexplained weight loss, others Psychiatric: denies: anxiety, bipolar disorder, depression, hopeless, panic disorder, schizophrenia, sleepless, suicidal, others Physical Exam General Appearance: No Apparent Distress HEENT: PERRL/EOMI, Pharynx Normal, TMs Normal, Other (2 SKIN TEARS TO FOREHEAD NOTED <4 CM IN SIZE WITH SLIGHT TTP/SWELLING/ERYTHEMA LOCALIZED TO WOUND EDGES. NO PALPABLE SKULL ABNORMALITY/FURTHER SKIN CHANGES NOTED) Neck: Full Range of Motion, Non-Tender, Normal Respiratory: Chest Non-Tender, Lungs Clear, No Accessory Muscle Use, No Respiratory Distress, Normal Breath Sounds Cardiovascular: No Murmur, No Gallop, Regular Rate/Rhythm Breast Exam: Deferred Gastrointestinal: NOT DONE Genitalia: Deferred Pelvic: Deferred Rectal: Deferred Extremities: Normal capillary refill, Normal range of motion Neurologic: Alert (GCS), supervisor display fabrication II-XII nml as Tested, No Motor Deficits, Normal Affect, Normal Mood, No Sensory Deficits Cerebellar Function: Normal Reflexes: Normal Skin: Dry, Warm Lymphatic: No Adenopathy Was a procedure done? Was a procedure done?: No Sedation Sedation?: No Differential diagnosis Generic Laceration: Fracture, Retained Foriegn Body, Neurovascular Injury Differential Diagnosis: Other (SUBARACHNOID HEMORRHAGE, SUBDURAL HEMATOMA) X-Ray, Labs, Meds, VS Vital Signs Date Time Temp Pulse Resp B/P (MAP) Pulse Ox O2 Delivery O2 Flow Rate FiO2 06/30/24 18:52 98.0 95 16 135/78 (97) [address] HEAD IN ER WITH ALL BENEFITS/RISKS DISCUSSED DERMABOND AND STERI-STRIPS APPLIED TO SKIN TEARS TO FOREHEAD WITHOUT COMPLICATION WOUND CARE/CLEANING DISCUSSED AND ADVISED ADVISED TO FOLLOW UP WITH PCP IN 1-2 DAYS PATIENT ALERT AND ORIENTED X4 PRIOR TO DISCHARGE. PATIENT VERBALIZED UNDERSTANDING AND AGREEABLE WITH CURRENT PLAN OF CARE ADVISED TO RETURN TO ER IMMEDIATELY IF SYMPTOMS WORSEN Time of 1ST Reevaluation: 19:22 Reevaluation 1ST: N/A Patient Education/Counseling: Diagnosis, Treatment, Prognosis, Need For Follow Up Family Education/Counseling: No Family Present Departure 1 Departure Time of Disposition: 19:52 Impression: Primary Impression: Head injury Qualified Codes: S09.90XA - Unspecified injury of head, initial encounter Additional Impression: Skin tear Disposition: 01 HOME / SELF CARE / HOMELESS Condition: Stable e-Prescriptions Acetaminophen (Acetaminophen) 500 Mg Tab 500 MG PO Q4HPRN, #30 TAB 0 Refills Prov: NICOLASA MILLER 06/30/24 Cephalexin Monohydrate (Cephalexin) 500 Mg Cap 1 CAP PO BID for 7 Days, #14 CAP 0 Refills Prov: NICOLASA MILLER 06/30/24 Discharged With: Self Critical Care Note Critical Care Time?: No Stability Stability form required: No Heart Score Heart Score: Heart Score Response (Comments) Value History N/A 0 EKG N/A 0 Age N/A 0 Risk Factors N/A 0 Troponin N/A 0 Total 0 NICOLASA MILLER Jun 30, 2024 19:24
== END 2024-06-30 20:07 | disposition home or self-care (01) ==
LOC: ER 18:17
DX: S01.81XA Laceration without foreign body of other part of head, initial encounter (principal); I10 Essential (primary) hypertension; Z79.899 Other long term (current) drug therapy; Z88.5 Allergy status to narcotic agent; W22.8XXA Striking against or struck by other objects, initial encounter; Y93.01 Activity, walking, marching and hiking; Y92.89 Other specified places as the place of occurrence of the external cause; Y99.8 Other external cause status
CPT/HCPCS: 12011; 12013